=== PATIENT | female | born 1995 ===

== ENCOUNTER → 2019-01-09 | Emergency (ER) | payer OTHER ==
[~2019-01-09] VITALS: Ht 160 cm; Wt 61.7 kg
[~2019-01-09] MED LIST: SYNTHROID150 MCG PO
== END | disposition home or self-care (01) ==
LOC: ER 19:34
DX: O26.892 Other specified pregnancy related conditions, second trimester (principal); R06.02 Shortness of breath; F41.8 Other specified anxiety disorders; Z34.82 Encounter for supervision of other normal pregnancy, second trimester